=== PATIENT | female | born 1995 | race Caucasian/White ===

== ENCOUNTER 2019-10-05 15:36 | Emergency (ER) | payer MEDICAID ==
[~2019-10-05] VITALS: Ht 154.9 cm; Wt 91.0 kg
[2019-10-05 16:02] VITALS: BP 122/98
[2019-10-05] MEDS ORDERED: IBUPROFEN 600MG TABLET PO ONE (18:45)
== END 2019-10-05 18:42 | disposition home or self-care (01) ==
LOC: ER 15:36
DX: S90.851A Superficial foreign body, right foot, initial encounter (principal); W25.XXXA Contact with sharp glass, initial encounter; W45.8XXA Other foreign body or object entering through skin, initial encounter; Y93.89 Activity, other specified; Y92.488 Other paved roadways as the place of occurrence of the external cause
CPT/HCPCS: 73630; 99283